=== PATIENT | male | born 1955 | race Caucasian/White ===

== ENCOUNTER 2025-03-10 10:49 | Outpatient (CLI) | payer MEDICARE | END 2025-03-10 10:50 | disposition home or self-care (01) | LOC: CSHRAD 10:49 | PROVIDERS: ATTEND Internal Medicine | DX: M79.671 Pain in right foot (principal); M77.31 Calcaneal spur, right foot ==

== ENCOUNTER 2025-05-17 12:57 | Emergency (ER) | payer MEDICARE ==
[2025-05-17] MEDS ORDERED: HYDROcodone/Acetaminophen 5/325 mg Tablet ONE (13:22)
[2025-05-17] MEDS ORDERED: Bacitracin 1 PK ONE (15:06)
[2025-05-17] MEDS ORDERED: CEFAZOLIN 2 GM VIAL ONE (15:12)
[2025-05-17] MEDS ORDERED: Sulfameth/Trimethoprim DS 800-160mg TAB ONE (15:18)
== END 2025-05-17 15:43 | disposition home or self-care (01) ==
LOC: CSHERS 12:57
DX: S61.214A Laceration without foreign body of right ring finger without damage to nail, initial encounter (principal); S61.216A Laceration without foreign body of right little finger without damage to nail, initial encounter; I10 Essential (primary) hypertension; W27.0XXA Contact with workbench tool, initial encounter
CPT/HCPCS: 12002; 99283